=== PATIENT | male | born 1975 | race Two or more races ===

== ENCOUNTER 2024-02-26 10:04 | Emergency (ER) | payer MEDICAID, OTHER ==
[~2024-02-26] VITALS: Ht 182.9 cm; Wt 177.9 kg
--- NOTE | 2024-02-26 10:24 | ED.PDOC ---
History of Present Illness HPI Comments 48 y/o M, with a Hx of morbid obesity, presents with c/o left ankle pain, today. Patient endorses on "twisting" his ankle when he stepped out his vehicle 2x days ago. He comments on not rolling on said ankle or having any prior injuries to site along with any additional pertinent information. He denies any numbness, tingling, weakness, swelling, or other associated symptoms or modifiers at this time. Chief Complaint: Lower Extremity Time Seen by MD: 10:15 Reviewed Notes: Nurses Notes, Medications, Allergies Allergies: Coded Allergies: No Known Drug Allergy (Verified Allergy, Unknown, 02/26/24) Information Source: Patient Mode of Arrival: Ambulatory Severity: Moderate Timing: Days Duration: Since onset Prehospital treatment: None Past Medical History PAST MEDICAL HISTORY: Denies Surgical History: Denies all surgeries Family History Family History: Unknown Social History Smoker: Non-Smoker Alcohol: Denies ETOH Use Drugs: Denies Drug Use Lives In: Home Musculoskeletal: reports: others (left ankle tenderness ) All Other Systems: Reviewed and Negative (negative unless otherwise stated above or in HPI) Physical Exam General Appearance: No Apparent Distress, Obese HEENT: Normal ENT Inspection, Pharynx Normal, TMs Normal Neck: Full Range of Motion, Non-Tender, Normal, Normal Inspection Respiratory: Chest Non-Tender, Lungs Clear, No Accessory Muscle Use, No Respiratory Distress, Normal Breath Sounds Cardiovascular: No Edema, No JVD, No Murmur, No Gallop, Normal Peripheral Pulses, Regular Rate/Rhythm Breast Exam: Deferred Gastrointestinal: No Organomegaly, Non Tender, No Pulsatile Mass, Normal Bowel Sounds, Soft Genitalia: Deferred Pelvic: Deferred Rectal: Deferred Extremities: No calf tenderness, Normal capillary refill, Normal inspection, Normal range of motion, No pedal edema, Tender (left ankle, relieves with inversion, worsens with eversion) Musculoskeletal : Apperance: Normal Neurologic: Alert, 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 Was a procedure done?: No Differential Dx Considerations may include: dislocation, fracture, contusions, bruising, musculoskeletal pain X-Ray, Labs, Meds, VS Vital Signs Date Time Temp Pulse Resp B/P (MAP) Pulse Ox O2 Delivery O2 Flow Rate FiO2 02/26/24 10:44 97 17 96 Room Air 02/26/24 10:44 98.4 97 17 182/92 (122) 96 98.4 02/26/24 10:12 98.4 97 17 182/92 (122) 96 [facility] [id number] [facility] [id number] Ph: [phone] DIAGNOSTIC IMAGING Diagnostic Imaging Report : [id number] Signed PATIENT: ALBERT TARANGO ACCT: [id number] UNIT: [id number] : 1975 LOC: ER ROOM / BED: / AGE / SEX: 48 / M ADM STATUS: REG ER SERVICE 1023 ORDERING PHYSICIAN: ROSA MARIA PERKINS MD PROCEDURE(s): LANKL - L ANKLE 3 VIEW REASON: PAIN ORDER NUMBER(s): [id number], ACCESSION NUMBER(s): [id number] CLINICAL INDICATION: PAIN TECHNIQUE: Left XY L ANKLE 3 VIEW Comparison: None FINDINGS/IMPRESSION: : There is no evidence of acute fracture or dislocation. Soft tissues are unremarkable. Old fracture seen of the distal medial malleolar tip Ankle mortise intact Prominent plantar calcaneal spurs ATED BY: NIKHIL MEDEL MD DICTATED DATE/TIME: 02/26/24 1044 SIGNED BY: NIKHIL MEDEL MD SIGNED DATE/TIME: 02/26/24 1044 CC: X-Ray, Labs, Meds, VS Comment This 48-year-old male presents 2 days after landing on inverted right ankle. Says the pain is better when he inverted his ankle and hurts more when he everts his ankle. Pain is also worse with ambulation. Physical exam was significant for tenderness palpation over the antterior talo-tibial ligament. Screening shows no fracture dislocation or does show an old fracture. Based the patient's history, physical exam and imaging I believe he has a left ankle sprain. He will be discharged home with Naprosyn. He is asked to rest, ice elevate the extremity. Time of 1ST Reevaluation: 10:45 Reevaluation 1ST: Unchanged Patient Education/Counseling: Diagnosis, Treatment Family Education/Counseling: No Family Present Departure 1 Departure Time of Disposition: 11:27 Impression: Primary Impression: Left ankle pain Additional Impression: Left ankle sprain Disposition: 01 HOME / SELF CARE / HOMELESS Condition: Good Discharged With: Self Critical Care Note Critical Care Time?: No Stability Stability form required: No Heart Score Heart Score: Heart Score Response (Comments) Value History N/A 0 EKG N/A 0 Age N/A 0 Risk Factors N/A 0 Troponin N/A 0 Total 0 I personally scribed for ROSA MARIA PERKINS MD ([email or web address]) on 02/26/24 at 10:24. Electronically submitted by Vel Medel ([email or web address]). I personally scribed for ROSA MARIA PERKINS MD ([email or web address]) on 02/26/24 at 11:08. Electronically submitted by Vel Medel ([email or web address]). ROSA MARIA PERKINS MD Feb 26, 2024 10:24
[2024-02-26 10:44] VITALS: BP 182/92; PULSE 97; RESP 17; TEMP 98.4; O2SAT 96
--- NOTE | 2024-02-26 10:47 | DVH ---
CLINICAL INDICATION: PAIN TECHNIQUE: Left XY L ANKLE 3 VIEW Comparison: None FINDINGS/IMPRESSION: : There is no evidence of acute fracture or dislocation. Soft tissues are unremarkable. Old fracture seen of the distal medial malleolar tip Ankle mortise intact Prominent plantar calcaneal spurs
== END 2024-02-26 12:14 | disposition home or self-care (01) ==
LOC: ER 10:04
DX: S93.402A Sprain of unspecified ligament of left ankle, initial encounter (principal); M25.572 Pain in left ankle and joints of left foot; X50.1XXA Overexertion from prolonged static or awkward postures, initial encounter; Y93.89 Activity, other specified; Y92.89 Other specified places as the place of occurrence of the external cause; Y99.8 Other external cause status
CPT/HCPCS: 73610